=== PATIENT | female | born 1950 | race Hispanic/Latino ===

== ENCOUNTER → 2025-05-13 | Outpatient (CLI) | payer OTHER ==
[~2025-05-13] MED LIST: IOHEXOL 350 MG/ML 100ML INFUS..BTL IV ONE
--- NOTE | 2025-05-14 05:44 | HMCIMG ---
EXAM: US examination, one body part CLINICAL HISTORY: IV GUIDANCE TECHNIQUE: Real-time ultrasound examination performed with image documentation. COMPARISON: None provided. FINDINGS: No acute findings. Successful intravascular placement of an intravenous catheter in the left cephalic vein IMPRESSION: Technically successful intravascular placement of an IV line in the left cephalic vein. /Rukhsana
== END | disposition home or self-care (01) ==
LOC: RAH 12-22 11:46
PROVIDERS: ATTEND Student in an Organized Health Care Education/Training Program
DX: R07.9 Chest pain, unspecified (principal)
CPT/HCPCS: 75574; 76937; J3490; Q9967